=== PATIENT | female | born 1970 | race Caucasian/White ===

== ENCOUNTER 2019-02-05 18:33 | Emergency (ER) | payer OTHER ==
[2019-02-05 18:41] VITALS: BP 138/65; PULSE 94; RESP 16; TEMP 98.3; O2SAT 99
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
== END 2019-02-05 20:55 | disposition home or self-care (01) ==
LOC: H.ER 18:33
DX: S90.02XA Contusion of left ankle, initial encounter (principal); V43.52XA Car driver injured in collision with other type car in traffic accident, initial encounter; Y92.410 Unspecified street and highway as the place of occurrence of the external cause; Z88.8 Allergy status to other drugs, medicaments and biological substances